=== PATIENT | female | born 1995 | race Caucasian/White ===

== ENCOUNTER 2024-05-14 09:42 | Emergency (ER) | payer MEDICAID, SELFPAY ==
[2024-05-14 09:52] VITALS: BP 115/83; PULSE 118; RESP 18; TEMP 37.2; O2SAT 99; BMI 19.8
--- NOTE | 2024-05-14 10:04 | XR_ITS ---
Examination: Abdomen sonogram, Limited Date and time of exam: May 14, 2024 1125 hours INDICATIONS: Vomiting and right upper abdominal pain today Technique: Real-time sifuentes scale transabdominal sonographic images of the upper abdomen obtained. Findings: Normal gallbladder Normal common bile duct 0.3 cm Pancreatic head 1.8 cm Liver 14.8 cm no focal liver lesions Normal hepatopedal portal venous flow Patent IVC IMPRESSION: Negative study
--- NOTE | 2024-05-14 10:08 | EDNOTE_ITS ---
Nausea/Vomit./Diarrhea-RME/HPI General Chief complaint: Nausea/Vomiting/Diarrhea Stated complaint: N/V/D SINCE LAST NIGHT Time Seen by Provider: 05/14/24 09:44 Arrival date/time: 05/14/24 09:42 RME / HPI RME / HPI Narrative: This section includes all my notes and documentations, including HPI, PE, MDM, Procedure Notes, and PLAN. Edison Lima MD HPI: 28 year old female with history of gastritis presents to the ED for complaint of nausea, vomiting, and diarrhea beginning at 02:00 this morning, about 12 hours ago. Reports she has had ~ 18 episodes of nonbloody vomiting and 8 episodes of nonbloody diarrhea since onset with no known modifying factors. Accompanied by chills and feeling sweaty that is most prominent prior to vomiting. Reportedly consulted her PCP today and was advised to come to the ED for further evaluation/treatment. Denies fevers, chest pain, cough, or urinary symptoms. No other complaints reported. Patient additionally states she was diagnosed with a sinus infection 1 week ago and started on a 5-day course of Azithromycin which she completed. Says her PCP has prescribed a second round of Azithromycin. ROS: Respiratory: negative except as documented in HPI. Gastrointestinal: SEE HPI +n/v/d Genitourinary: negative except as documented in HPI. Musculoskeletal: negative except as documented in HPI. Skin: negative except as documented in HPI. Neurological: negative except as documented in HPI. Physical Exam: General: Alert and oriented. In distress from vomiting. Eyes: Conjunctivae and lids clear. ENT: No nasal congestion. Pharynx normal. Tympanic membrane normal bilaterally. Neck: Supple. No lymphadenopathy. Heart: RRR. Lungs: No respiratory distress. Good air movement. No rhonchi, wheezing, rales. Abdomen: Soft with equivocal mild tenderness, difficult to localize. Normal bowel sounds. No distension. No rebound or guarding. Back: No CVA tenderness. Skin: Warm and dry. Neuro: Alert and oriented X 3. I reviewed all diagnostic test results. My review of the GB ultrasound report is no acute findings. Blood tests and urine tests are unremarkable. At this point, diagnoses include gastroenteritis. Patient was treated here with IV fluid, Zofran 4 mg IV, Toradol 30 mg IV, and morphine 4 mg IV. Significant improvement noted subjectively and objectively. Recommended a trial of outpatient treatment. Based on my best medical judgment, made decision no further evaluation or treatment indicated at this time. Patient understands and agrees to the discharge instructions customized and printed, see below. Discharge Instructions from Dr. Lima: 1. After evaluation, you have stomach flu.? See attached handout on gastroenteritis. 2. This is caused by virus germs.? And we do not have good medications to kill the virus germs.? But your immune system will fight it off. 3. Your job is to stay hydrated.? Zofran for nausea/vomiting.? Increase oral fluid and maintain clear urine.? If dark or yellow, increase oral fluid. 4. Do not take any medications to stop your diarrhea.? But try to replenish the fluid and electrolytes you are losing. 5. Some good choices are water (but not only water because it will cause electrolyte abnormalities), sports drinks like Gatorade (with less sugar content), coconut water, chicken stock, and other fluid with electrolytes (like Pedialyte). 6. See your private doctor next week if not better. 7. Seek immediate medical care with worsening or with any concerns. Edison Lima MD Related Data Home Medications ?Medication ?Instructions ?Recorded ?Confirmed omeprazole 40 mg capsule,delayed 40 mg PO QDAY 11/22/20 11/22/20 release Previous Rx's ?Medication ?Instructions ?Recorded ondansetron 4 mg disintegrating 4 mg PO TID PRN nausea and 05/14/24 tablet vomiting 5 days #10 tabs Allergies Allergy/AdvReac Type Severity Reaction Status Date / Time No Known Allergies Allergy Verified 04/21/20 14:39 Review of Systems Review of Systems Systems Reviewed: All systems reviewed, normal except as documented Past Medical History Past Medical History GASTROINTESTINAL: Positive Gastrointestinal Disorders and Gastroesophageal Reflux Disease Social History SMOKING STATUS: Never smoker ED Exam Narrative Physical exam: As noted in HPI Course Quality Measures none Orders Category Date Time Status Bedside COVID-19 Antigen Test NOW Care 05/14/24 10:03 Active Bedside Influenza A&B Antigen Test NOW Care 05/14/24 10:[address] Screening NOW Care 05/14/24 10:03 Active Saline [Insert IV] NOW Care 05/14/24 09:55 Active US gall bladder Stat Exams 05/14/24 10:04 Completed Amylase Stat Lab 05/14/24 10:20 Completed CBC Stat Lab 05/14/24 10:20 Completed CMP [Comprehensive Metabolic Panel] Stat Lab 05/14/24 10:20 Completed HCG,Qualitative Serum Stat Lab 05/14/24 10:20 Completed Lipase Stat Lab 05/14/24 10:20 Completed Magnesium Stat Lab 05/14/24 10:20 Completed UA [Urinalysis] Stat Lab 05/14/24 10:02 Ordered Ketorolac Inj [Toradol Inj] Med 05/14/24 09:54 Discontinued 30 mg IVP X1 ONE Morphine Inj Med 05/14/24 09:54 Discontinued 4 mg IVP X1 ONE Ondansetron Inj [Zofran Inj] Med 05/14/24 09:54 Discontinued 4 mg IV X1 ONE Ringers Lactated 1000 ml [Lactated Ringers] 1,000 ml Med 05/14/24 09:55 Discontinued IV 1,000 mls/hr Sodium Chloride 0.9% 1000 ml [Ns] 1,000 ml Med 05/14/24 10:06 Discontinued IV 999 mls/hr Reevaluation(s) Reevaluation #1: Patient remains clinically stable throughout the emergency department visit. We reviewed all the results, analysis, and treatment plans. Patient is amenable to discharge. Strict return precautions were outlined. Patient was discharged in stable condition. Time: 12:20 Vital Signs Vital signs: Vital Signs Temperature 99.0 F 05/14/24 09:52 Pulse Rate 118 H 05/14/24 09:52 Respiratory Rate 18 05/14/24 09:52 Blood Pressure 115/83 05/14/24 09:52 Pulse Oximetry (%) 99 05/14/24 09:52 Oxygen Delivery Method Room Air 05/14/24 09:52 Pulse ox is 99% on room air which is adequate. Nausea/Vomiting/Diarrhea MDM Narrative MDM Narrative:: Michell aMrlow am scribing for and in the presence of Dr. Lima. Patient data External records reviewed:: [facility] previous records (I reviewed ED visit on 11/22/2020) Clinical information provided by:: patient Social determinants that could affect healthcare access:: none Patient has the following chronic illnesses:: Gastritis How is presenting disease/condition affected by chronic disease/condition?: une ffected by Evaluation data The following diagnostics were reviewed and interpreted by me:: lab results and radiology exam(s) Lab and/or radiology exams considered but not ordered:: None Interpretation Summary: Ordering Physician: Edison Lima MD Date of Service: 05/14/24 Procedure(s): US gall bladder Accession Number(s): [id number] cc: Edison Lima MD; Ciro Liu MD; Abundio Ontiveros MD~ Examination: Abdomen sonogram, Limited Date and time of exam: May 14, 2024 1125 hours INDICATIONS: Vomiting and right upper abdominal pain today Technique: Real-time sifuentes scale transabdominal sonographic images of the upper abdomen obtained. Findings: Normal gallbladder Normal common bile duct 0.3 cm Pancreatic head 1.8 cm Liver 14.8 cm no focal liver lesions Normal hepatopedal portal venous flow Patent IVC IMPRESSION: Negative study Dictated By: Ciro Liu MD Signed By: <Electronically signed by Ciro Liu MD in OV> 05/14/24 1155 Medications / Prescriptions Medications / Prescriptions considered but not ordered:: None Medication administrations:: Medication Administration History Discontinued Medications Lactated Ringer's (Lactated Ringers) 1,000 mls @ 1,000 mls/hr IV .Q1H ONE Stop: 05/14/24 10:54 Last Admin: 05/14/24 10:07 Dose: Not Given Documented By: BEST Non-Admin Reason: Cancelled by Provider Sodium Chloride (Ns) 1,000 mls @ 999 mls/hr IV .Q1H1M ONE Stop: 05/14/24 11:06 Last Infusion: 05/14/24 12:00 Dose: Infused Documented By: Admin: 05/14/24 10:34 Dose: 999 mls/hr Documented By: EF Ketorolac Tromethamine (Ketorolac Inj 30 Mg/Ml Vial) 30 mg IVP X1 ONE Stop: 05/14/24 09:55 Last Admin: 05/14/24 10:34 Dose: 30 mg Documented By: EF Morphine Sulfate (Morphine Sulf Inj 10 Mg/Ml Vial) 4 mg IVP X1 ONE Stop: 05/14/24 09:55 Last Admin: 05/14/24 10:34 Dose: 4 mg Documented By: EF Ondansetron HCl (Ondansetron Inj 2 Mg/Ml Inj 2 Ml) 4 mg IV X1 ONE; Protocol Stop: 05/14/24 09:55 Last Admin: 05/14/24 10:34 Dose: 4 mg Documented By: EF See above Consultations Consultation(s) initiated? (list below): No Diagnosis Nausea Differential Diagnosis: food poisoning, gastroenteritis, drug-induced nausea and vomiting and dehydration Most likely diagnosis given after review of the tests above:: Gastroenteritis Admission Indicated Admission indicated?: not indicated Admission Request Was there a request for admission?: No Disposition Plan Disposition Plan: Discharge Discharge Attestation Discharge Attestation: The patient and all family members were given an opportunity to ask questions and understood the discharge instructions. Discharge instructions specifically effects, indications for sooner follow up or return to the emergency department, and the expected course of current diagnosis. Patient condition: Stable Discharge Plan Plan Patient Disposition: HOME (Self Care) Prescriptions/Referrals Prescriptions/Med Rec: New ondansetron 4 mg tablet,disintegrating 4 mg PO TID PRN (Reason: nausea and vomiting) 5 Days Qty: 10 0RF No Action omeprazole 40 mg capsule,delayed release(DR/EC) 40 mg PO QDAY Patient Comments: TAKE 1 CAPSULE BY MOUTH EVERY DAY Referrals: Abundio Ontiveros MD [Primary Care Provider] - In 1 week Problem List Clinical Impression: Stomach flu Patient/Caregiver Discharge Instructions Education Materials: ED Gastroenteritis, Viral (Adult) Additional Instructions: Discharge Instructions from Dr. Lima: 1. After evaluation, you have stomach flu.? See attached handout on gastroenteritis. 2. This is caused by virus germs.? And we do not have good medications to kill the virus germs.? But your immune system will fight it off. 3. Your job is to stay hydrated.? Zofran for nausea/vomiting.? Increase oral fluid and maintain clear urine.? If dark or yellow, increase oral fluid. 4. Do not take any medications to stop your diarrhea.? But try to replenish the fluid and electrolytes you are losing. 5. Some good choices are water (but not only water because it will cause electrolyte abnormalities), sports drinks like Gatorade (with less sugar content), coconut water, chicken stock, and other fluid with electrolytes (like Pedialyte). 6. See your private doctor next week if not better. 7. Seek immediate medical care with worsening or with any concerns. Print Language: Mongolian Stand Alone Forms: [employer] Info., Work/School Release, Patient Portal Info Letter
[2024-05-14] MEDS: ONDANSETRON INJ 2 MG/ML INJ 2 ML 4 MG IV (10:34)
[2024-05-14] MEDS: KETOROLAC INJ 30 MG/ML VIAL IVP (10:34)
[2024-05-14] MEDS: SODIUM CHLORIDE 0.9% 1000 ML 1,000 ML 999 ML IV (10:34)
[2024-05-14] MEDS: MORPHINE SULF INJ 10 MG/ML VIAL 4 MG IVP (10:34)
[2024-05-14 10:48] LABS: Basophils % (Auto) 0 % (0-2.5); Eosinophils % (Auto) 0 % (0-10); Hematocrit 45.6 % (36.0-46.0); Hemoglobin 15.6 g/dL (12.0-16.0); Immature Granulocytes % (Auto) 0 % (0-0); Immature Granulocytes Auto 0.06 Thou/mm3 (0.00-0.00); Lymphocytes # (Auto) 0.3 Thou/mm3 (1.0-4.8); Lymphocytes % (Auto) 2 % (10-50); Mean Corpuscular HGB Conc 34.2 g/dl (31.0-37.0); Mean Corpuscular Hemoglobin 28.5 pg (25.0-35.0); Mean Corpuscular Volume 83 fL (80-100); Monocytes # (Auto) 0.3 Thou/mm3 (0.0-0.8); Monocytes % (Auto) 2 % (0-12); Neutrophils # (Auto) 14.7 Thou/mm3 (1.8-7.7); Neutrophils % (Auto) 95 % (37-80); Nucleated Red Blood Cell % 0 /100 WBC (0); Platelet Count 320 Thou/mm3 (140-440); RDW Standard Deviation 37.7 fL (36.4-46.3); Red Blood Count 5.48 Miln/mm3 (4.00-5.20); White Blood Count 15.4 Thou/mm3 (3.6-11.0)
--- NOTE | 2024-05-14 10:56 | PC.NURSE ---
patient brought in for nausea/vomitting/diarrhea that started at 0200 patient states she projectile vomitted 18 times
[2024-05-14 11:16] LABS: HCG,Qualitative Serum Negative
[2024-05-14 11:17] LABS: Alanine Aminotransferase 16 U/L (10-49); Albumin, Serum 5.9 gm/dL (3.5-5.0); Albumin/Globulin Ratio 1.6 (1.2-2.2); Alkaline Phosphatase 80 U/L (46-116); Amylase 67 U/L (30-118); Anion Gap 11 (7-16); Aspartate Amino Transferase 23 U/L (0-34); BUN/Creatinine Ratio 16 Ratio (12-20); Bilirubin,Total 0.9 mg/dL (0.3-1.2); Blood Urea Nitrogen 14 mg/dL (9-23); Calcium 10.7 mg/dL (8.3-10.6); Calcium (Corrected) 10.7 mg/dL (8.5-10.1); Carbon Dioxide 20.7 mMol/L (20.0-31.0); Chloride 104 mMol/L (98-107); Creatinine (Component) 0.9 mg/dL (0.6-1.3); Estimated Creatinine Clearance 88.4 mL/min (>60); Globulin 3.7 gm/dL (2.3-3.5); Glucose 114 mg/dL (74-106); Lipase 39 U/L (12-53); Osmolality,Calculated 273 (275-295); Potassium 3.8 mMol/L (3.4-5.1); Sodium 136 mMol/L (136-145); Total Protein 9.6 gm/dL (5.7-8.2); eGFR > 60 See Note
[2024-05-14 12:57] VITALS: BP 118/72; PULSE 92; RESP 18; TEMP 36.7; O2SAT 99
== END 2024-05-14 14:33 | disposition home or self-care (01) ==
PROVIDERS: Emergency Provider Emergency Medicine; PCP Family Medicine
DX: A08.4 Viral intestinal infection, unspecified (principal)
CPT/HCPCS: 36415; 76705; 80053; 81001; 82150; 83690; 83735; 84703; 85025; 87400; 87811; 96361; 96374; 96375; 99284; J1885; J2270; J2405; J7030